=== PATIENT | female | born 1955 ===

== ENCOUNTER → 2016-10-08 | Outpatient (REF) | LOC: ZLAB.WCH 14:40 | DX: Z01.89 Encounter for other specified special examinations (principal) ==

== ENCOUNTER → 2017-09-02 | Outpatient (REF) | LOC: ZLAB.WCH 18:10 | DX: Z01.89 Encounter for other specified special examinations (principal) ==

== ENCOUNTER → 2017-11-19 | Outpatient (REF) | LOC: ZLAB.WCH 15:05 | DX: Z01.89 Encounter for other specified special examinations (principal) ==

== ENCOUNTER → 2017-12-03 | Outpatient (REF) | LOC: ZLAB.WCH 16:03 | DX: Z01.89 Encounter for other specified special examinations (principal) ==

== ENCOUNTER 2017-12-25 14:45 | Outpatient (RCR) | payer MEDICARE | END 2017-12-31 | disposition home or self-care (01) | LOC: WSPT | DX: M25.562 Pain in left knee (principal) | CPT/HCPCS: G8978-GP; G8979-GP; G8980-GP ==

== ENCOUNTER → 2018-01-06 | Outpatient (REF) | LOC: ZLAB.WCH 17:57 | DX: Z01.89 Encounter for other specified special examinations (principal) ==

== ENCOUNTER → 2018-11-27 | Outpatient (REF) | LOC: ZLAB.WCH 14:08 | DX: Z01.89 Encounter for other specified special examinations (principal) ==